=== PATIENT | female | born 1950 | race Native Hawaiian/Other Pacific Islander ===

== ENCOUNTER 2021-11-18 12:37 | Emergency (ER) | payer OTHER, MEDICARE ==
[~2021-11-18] VITALS: Ht 160 cm; Wt 72.6 kg
[2021-11-18 12:37] VITALS: BP 172/97; TEMP 98
[2021-11-18 13:31] LABS: PLATELET COUNT 318 K/uL (152-353)
[2021-11-18 13:35] LABS: POTASSIUM 3.9 mmol/L (3.6-5.2)
[2021-11-18] MEDS ORDERED: FLUTMIS6 INH (17:23)
[2021-11-18] MEDS ORDERED: SPIRIVA RE2.5 MCG/AC INH (17:24)
[2021-11-18] MEDS ORDERED: PROAIR HFA108 MCG/AC INH (17:25)
[2021-11-18] MEDS ORDERED: AMLODIPINE BESYLATE PO (17:26)
[2021-11-18] MEDS ORDERED: PRAVASTATIN10 MG PO (17:26)
[2021-11-18] MEDS ORDERED: MULTIVITAMI1 PO (17:27)
[2021-11-18] MEDS ORDERED: ADVIL200 M1 PO (17:28)
[2021-11-18] MEDS ORDERED: LOPE2CAP17 PO (17:29)
== END 2021-11-18 15:32 | disposition still patient (30) ==
LOC: ED 13:06
PROVIDERS: Emergency Medicine
DX: Z86.59 Personal history of other mental and behavioral disorders (principal); R41.0 Disorientation, unspecified; E86.0 Dehydration; Z11.52 Encounter for screening for COVID-19
CPT/HCPCS: 80053; 80307; 80320; 81002; 85027; 87635; 93005; 99285; U0003